=== PATIENT | female | born 1990 ===

== ENCOUNTER 2021-09-19 14:11 | Outpatient (REF) | payer BC, SELFPAY ==
--- NOTE | 2021-09-19 13:30 | PAPFT_PTH ---
PATIENT: Roxanne Haywood LOC: [facility] U#:[id number] AGE/SX: 30/F ROOM: RE09/19/[address]: Lavern Jordan MD : 1990 BED: DIS: 09/19/2021 SPEC #: [id number] RECD: 09/19/21 18:14 STATUS: LARS REGary #: [id number] OSCAR: 09/19/21 13:[address]: Lavern Jordan DEPT: [facility] Cytology RECD BY: Sonam Renteria Tissues: 1 - CX/ENDOCX FOR PAP SMEARS Procedures: PAP THIN PREP/[facility] Screening Comments: [id number]
== END 2021-09-19 14:12 | disposition home or self-care (01) ==
LOC: LBN 14:11
PROVIDERS: Visit Provider Obstetrics & Gynecology
DX: N76.0 Acute vaginitis (principal); Z12.4 Encounter for screening for malignant neoplasm of cervix
CPT/HCPCS: 88142; 87480; 87510; 87660